=== PATIENT | male | born 1985 ===

== ENCOUNTER 2019-03-05 21:54 | Emergency (ER) | payer OTHER ==
[2019-03-05] MEDS ORDERED: Ondansetron INJ* 2 MG/ML VIAL IV ONE (22:29)
[2019-03-05] MEDS ORDERED: Lorazepam PYXIS KEY PRN (22:29)
[2019-03-05] MEDS ORDERED: LORazepam INJ* 2 MG/ML 1 ML VIAL IV PUSH ONE (22:29)
--- NOTE | 2019-03-05 22:33 | ED ---
Substance Abuse/Use - HPI Summary HPI Summary: 33-year-old male with no significant past medical history presents to the emergency department today after ingesting a "weed brownie". Patient states he took an approximately 9 cm x 9 cm elbow brownie. He endorses feelings of nausea and not feeling well however he denies vomiting and chest pain. He states he ingested this brownie at approximately 8:00 PM this evening. He states he is not taking any other recreational drugs or alcohol this evening. Patient denies fever, chest pain, abdominal pain, pain with urination, rash, vomiting. - History Of Current Complaint Chief Complaint: EDSubstanceAbuse Stated Complaint: HEART PALPITATIONS PER EMS Time Seen by Provider: 03/05/19 22:20 Hx Obtained From: Patient - All the Onset/Duration of Drug/ETOH Abuse: Hours Ingestion History: Type/Name Of Drug - THC Overdose Characteristics: Oral Timing Of Abuse: Binge Use Severity Initially: Mild Severity Currently: Moderate Character: Anxious Associated Signs And Symptoms: Agitated, Nausea - Allergies/Home Medications Allergies/Adverse Reactions: Allergies Allergy/AdvReac Type Severity Reaction Status Date / Time No Known Allergies Allergy Verified 03/05/19 22:05 Home Medications: Home Medications NK [No Home Medications Reported] 03/05/19 [History Confirmed 03/05/19] PMH/Surg Hx/FS Hx/Imm Hx Infectious Disease History: No Infectious Disease History: Denies: Traveled Outside the [place] in Last 30 Days - Social History Alcohol Use: None Substance Use Type: Reports: None Smoking Status (MU): Never Smoked Tobacco Review of Systems Constitutional: Negative Eyes: Negative ENT: Negative Cardiovascular: Negative Respiratory: Negative Positive: Nausea. Negative: Abdominal Pain, Vomiting, Diarrhea Genitourinary: Negative Musculoskeletal: Negative Skin: Negative Neurological: Negative Positive: Anxious All Other Systems Reviewed And Are Negative: Yes Physical Exam Triage Information Reviewed: Yes Vital Signs On Initial Exam: Initial Vitals Temp Pulse Resp BP Pulse Ox 98.0 F 95 14 129/61 98 03/05/19 22:05 03/05/19 22:05 03/05/19 22:05 03/05/19 22:05 03/05/19 22:05 Vital Signs Reviewed: Yes Appearance: Positive: Well-Appearing, No Pain Distress, Well-Nourished Skin: Positive: Warm, Skin Color Reflects Adequate Perfusion Eyes: Positive: EOMI, PILLO, Other: - Conjunctival erythema noted ENT: Positive: Pharynx normal Respiratory/Lung Sounds: Positive: Clear to Auscultation, Breath Sounds Present Cardiovascular: Positive: RRR, S1, S2 Abdomen Description: Positive: Nontender, Soft. Negative: Distended, Guarding Bowel Sounds: Positive: Present Musculoskeletal: Positive: Strength/ROM Intact Neurological: Positive: Sensory/Motor Intact, Alert, Oriented to Person Place, Time, Normal Gait, Speech Normal Psychiatric: Positive: Normal AVPU Assessment: Alert Procedures - Sedation Patient Received Moderate/Deep Sedation with Procedure: No Diagnostics - Vital Signs Vital Signs Temp Pulse Resp BP Pulse Ox 03/05/19 22:05 98.0 F 95 14 129/61 98 - Laboratory Lab Statement: Any lab studies that have been ordered have been reviewed, and results considered in the medical decision making process. Course/Dx - Course Course Of Treatment: Patient was evaluated in the emergency department. He is resting comfortably on the stretcher noted to acute distress. No airway involvement or compromise. Patient had signs of THC toxicity with conjunctival erythema and dry mouth. Patient had mild tachycardia rate of 101 bpm. Patient was given 1 L of lactated Ringer's, 1 mg of Ativan, 4 mg of Zofran for supportive care. After completing his IV fluids and receiving his medication patient felt much better and was ready for discharge. - Diagnoses Differential Diagnosis/HQI/PQRI: Positive: Drug Abuse, Metabolic Disorder Provider Diagnoses: Drug abuse, marijuana Discharge ED - Sign-Out/Discharge Documenting (check all that apply): Patient Departure - Discharge Plan Condition: Stable Disposition: HOME Patient Education Materials: Cannabis Abuse (ED) Referrals: No Primary Care Phys,NOPCP [Primary Care Provider] - Additional Instructions: You were seen in the emergency department today due to THC abuse. There appeared to be no acute problems requiring intervention time. Please return to activity as tolerated. Follow-up with your [facility] in 2-3 days for further evaluation. Please return to emergency department immediately if you develop any new or worsening symptoms. - Billing Disposition and Condition Condition: STABLE Disposition: Home
[2019-03-05] MEDS ORDERED: Lorazepam PYXIS KEY ONE (22:34)
[2019-03-05] MEDS ORDERED: Lactated Ringers 1000 ML Bag* 1,000 ML IV ONE (23:00)
[2019-03-05 23:51] VITALS: BP 112/74
== END 2019-03-05 23:48 | disposition home or self-care (01) ==
LOC: ED 21:54
DX: F12.10 Cannabis abuse, uncomplicated (principal); R11.0 Nausea; F41.9 Anxiety disorder, unspecified
CPT/HCPCS: 96361; 96374; 96375; 99282; J2060; J2405